=== PATIENT | male | born 1940 | race Caucasian/White ===

== ENCOUNTER → 2017-10-05 | Outpatient (CLI) | payer MEDICARE, BC ==
--- NOTE | 2017-10-06 11:56 | RADRPT ---
EXAM DATE/TIME: 10/05/2017 00:00 [facility] COMPARISON : No previous studies available for comparison. INDICATIONS : Evaluate patient for possible RT renal biopsy and ablation treatment. HISTORY OF PRESENT ILLNESS: 77 year-old with right renal mass identified on outside ultrasound of the abdomen IMAGING STUDIES: Outside ultrasound was reviewed. ASSESSMENT: Lesion in the right kidney cannot be characterized as a simple cyst. However, additional imaging is n ecessary to exclude benign entity such as angiomyolipoma. PLAN: Suggest obtaining a CT scan of the abdomen with and without IV contrast to further evaluate right jorge al mass lesion. No oral contrast necessary. TIME SPENT: 10 minutes Devin Pardo MD on October 06, 2017 at 11:52 Board Certified Radiologist. This report was verified electronically.
== END ==
LOC: HRAD 18:53
PROVIDERS: ATTEND Urology
DX: N28.89 Other specified disorders of kidney and ureter (principal)

== ENCOUNTER → 2017-10-18 | Outpatient (CLI) | payer MEDICARE, BC | LOC: HRAD 16:12 | PROVIDERS: ATTEND Urology | DX: N28.89 Other specified disorders of kidney and ureter (principal) ==

== ENCOUNTER 2017-10-28 06:59 | Day surgery (SDC) | payer MEDICARE, BC ==
[~2017-10-28] VITALS: Ht 170.2 cm; Wt 85.9 kg
[2017-10-28] VITALS (7 sets, daily range): BP systolic 107–136; BP diastolic 56–93; PULSE 18–70; RESP 18–20; TEMP 97.8; O2SAT 87–99
[2017-10-28] MEDS ORDERED: METOPROLOL TARTRATE 25 MG TAB PO PRN (07:30)
[2017-10-28] MEDS ORDERED: ceFAZolin 2 GM PREMIX 50 ML IV SCH (07:30)
[2017-10-28] MEDS ORDERED: CHLORHEXIDINE GLUCONATE 2 % 1 PACK (2 CLOTHS) TOPICAL PRN (07:30)
[2017-10-28] MEDS ORDERED: LACTATED RINGER'S 1000 ML IV PRN (07:30)
[2017-10-28] MEDS ORDERED: POVIDONE IODINE 5% (ANTISEPSIS KIT) 4 APPLICATIONS EACH NARE PRN (07:30)
[2017-10-28] MEDS ORDERED: SODIUM CHLORID 0.9% 500 ML IV PRN (07:30)
[2017-10-28] MEDS ORDERED: SODIUM CHLOR 0.9% 1000 ML INJ 1,000 ML IV SCH (07:30)
[2017-10-28] MEDS ORDERED: LEVO50TA4 PO (07:35)
[2017-10-28] MEDS ORDERED: ISOS30TA3 PO (07:35)
[2017-10-28] MEDS ORDERED: AMLO2.5T PO (07:35)
[2017-10-28] MEDS ORDERED: PRAV80TA2 PO (07:35)
[2017-10-28] MEDS ORDERED: CETI10 (07:35)
[2017-10-28] MEDS ORDERED: ENAL20TA PO (07:35)
[2017-10-28] MEDS ORDERED: ASPI-516 CHEW (07:35)
[2017-10-28] MEDS ORDERED: ESOM1CAP16 PO (07:35)
[2017-10-28] MEDS ORDERED: FENO54TA PO (07:35)
[2017-10-28] MEDS ORDERED: ULOR80TA2 (07:35)
[2017-10-28 08:11] LABS: INTERNATIONAL NORMALIZED RATIO 1.1 RATIO; PROTHROMBIN TIME - PATIENT 11.4 SEC (9.8-11.6)
--- NOTE | 2017-10-28 11:47 | PD.RAD ---
Post CT Procedure Prog Note Procedure Date: October 28, 2017 Supervising Radiologist: Zach Montes Anesthesia: General, Local Plan of Activity Patient to Unit: PACU Patient Condition: Good See PACS Report for procedural detail/treatment Zach Montes MD October 28, 2017 11:47
[2017-10-28 12:09] LABS: HEMATOCRIT 35.4 % (39.0-51.0); HEMOGLOBIN 12.1 GM/DL (13.0-17.0)
[2017-10-28] MEDS ORDERED: MIDAZOLAM HCL 2 MG/2 ML VIAL ONE (12:16)
--- NOTE | 2017-10-28 12:36 | RADRPT ---
EXAM DATE: 10/28/2017 12:17 PM EDT AGE/SEX: 77 years / Male INDICATIONS: 77-year-old male with chronic renal insufficiency and newly diagnosed 3.9 cm mass in th e inferior pole of the right kidney. Given patient's history of renal insufficiency, patient presents for thermal ablation. I had an extensive discussion with the patient regarding possible difficulty o btaining appropriate margins due to the size of the mass and possible need for additional interventio ns. CLINICAL DATA: This is the patient's initial encounter. Patient reports that signs and symptoms have been present for 1 day and indicates a pain score of 0/10. MEDICAL/SURGICAL HISTORY: None. None. Anesthesia and pain control was provided by the Anesthesia department. DEVICE(S): Cryoablation probe 2.4 cryo needle Prophylactic antibiotics were administered with appropriate pre-procedure timing. . . COMPARISON: No prior [place] exams available for comparison. PROCEDURE : 1. CT guided cryoablation. 2. 3. Under sterile conditions and using aseptic technique with CT guidance the mass was localized and sati sfactory approach was taken to access the lesion. Using automated exposure control and adjustment of the mA and/or kV according to patient size, radiation dose was kept as low as reasonably achievable to obtain optimal diagnostic quality images. DICOM format image data is available electronically for review and comparison. Webtab Cryoprobes were employed using percutaneous technique employing the prescribed probes. An 18-gauge Hudd[place]eston blunt tip needle was also advanced adjacent to the anterior margin of the mass an d approximately 60 cc of normal saline was injected to allow for sufficient hilar dissection from adj acent bowel loop. A freeze-thaw, freeze-thaw technique was employed and serial imaging demonstrated a n ice ball encompassing the entire lesion. Post procedure images demonstrate expected postoperative changes without evidence of hematoma. CONCLUSION: 1. Uncomplicated cryoablation as above. Electronically signed by: Zach Montes MD 10/28/2017 12:35 PM EDT
[2017-10-28] MEDS ORDERED: DO NOT ADM ANY ANTICOAGULANT DRUGS PRN (13:15)
[2017-10-28] MEDS ORDERED: HYDROmorphone HCL PF 2 MG/ML VIAL ONE (13:16)
[2017-10-28] MEDS ORDERED: HYDROmorphone HCL PF 2 MG/ML VIAL IV ONE (14:30)
--- NOTE | 2017-10-28 14:40 | EKG ---
Date Performed: 10/28/2017 Time Performed: 07:30:17 PTAGE: 77 years EKG: Sinus rhythm WITH FREQUENT SUPRAVENTRICULAR PREMATURE COMPLEXES BORDERLINE LEFT AXIS DEVIATION LEFT VENTRICULAR H YPERTROPHY AND ST-T CHANGE ABNORMAL ECG NO PREVIOUS TRACING DOCTOR: Figueroa Christensen Interpretating Date/Time 10/28/2017 14:39:54
--- NOTE | 2017-10-28 15:27 | RADRPT ---
EXAM DATE: 10/28/2017 12:17 PM EDT AGE/SEX: 77 years / Male INDICATIONS: Right renal mass. CLINICAL DATA: This is the patient's initial encounter. Patient reports that signs and symptoms have been present for 1 day and indicates a pain score of 0/10. MEDICAL/SURGICAL HISTORY: None. None. COMPARISON: No prior [facility] exams available for comparison. BIOPSY SITE: Right renal Anesthesia and pain control was provided by the Anesthesia department. DEVICE(S): 18 gauge BARD biopsy needle One core specimen(s) sent to the laboratory for pathologic evaluation. Prophylactic antibiotics were administered with appropriate pre-procedure timing. . . PROCEDURE: CT guided Right renal biopsy Prior to the procedure informed consent was obtained. Any appropriate prior imaging studies were rev iewed. Using automated exposure control and adjustment of the mA and/or kV according to patient size, radiat ion dose was kept as low as reasonably achievable to obtain optimal diagnostic quality images. DICOM format image data is available electronically for review and comparison. The site was prepped in a sterile fashion. Full sterile technique was used, including cap, mask, becky rile gloves and gown and a large sterile sheet. Hand hygiene and 2% chlorhexidine and/or betadine/al cohol prep was utilized per protocol for cutaneous antisepsis. The skin and subcutaneous tissues wer e infiltrated with local anesthetic solution. With CT guidance the previously identified target was localized. Biopsy was performed using the presc ribed needle as above. Adequate hemostasis was obtained with compression at the puncture site. Follow-up CT scan reveals no hemorrhage. The patient tolerated the procedure well and there were no complications. The patient was returned to the Radiology Outpatient Unit in stable condition. FINDINGS: CONCLUSION: 1. Uncomplicated CT guided biopsy. Electronically signed by: Zach Montes MD 10/28/2017 3:26 PM EDT
[2017-10-28 16:37] LABS: HEMATOCRIT 39.2 % (39.0-51.0); HEMOGLOBIN 13.7 GM/DL (13.0-17.0)
== END 2017-10-28 17:25 | disposition home or self-care (01) ==
LOC: HROP 06:59 → HRIP 07:10 → HROP 17:25
PROVIDERS: ATTEND Urology
DX: N28.89 Other specified disorders of kidney and ureter (principal); N18.9 Chronic kidney disease, unspecified; Z01.810 Encounter for preprocedural cardiovascular examination
CPT/HCPCS: 50200; 50593; 77012; 77013; 85014; 85018; 85610; 85730; 88305; 93005; J1170; J3010; J2250

== ENCOUNTER 2017-11-04 13:16 | Day surgery (SDC) | payer MEDICARE, BC ==
[~2017-11-04 13:16] MED LIST: AMLO2.5T PO; ASPI-516 CHEW; CETI10; ENAL20TA PO; ESOM1CAP16 PO; FENO54TA PO; ISOS30TA3 PO; LEVO50TA4 PO; PRAV80TA2 PO; ULOR80TA2
[2017-11-04 13:45] VITALS: BP 123/80; PULSE 75; RESP 18; TEMP 96; O2SAT 96
--- NOTE | 2017-11-04 13:45 | PD.RAD ---
Post US Procedure Prog Note Pre Procedure Diagnosis: (1) Right thyroid nodule Post Procedure Diagnosis: (1) Right thyroid nodule Procedure Date: Nov 04, 2017 Supervising Radiologist: Henri Vilchis Proceduralist/Assist: Violeta Kee RDMS Anesthesia: Local Plan of Activity Patient to Unit: ROPU Patient Condition: Good See PACS Report for procedural detail/treatment Biopsy Imaging Guidance: Ultrasound Side: Right Biopsy Procedure: Thyroid Specimen: Fine Needle Aspirate Additional Detail: 4 FNAs. Plan to ROPU then discharge. Henri Vilchis MD Nov 04, 2017 13:45
== END 2017-11-04 14:00 | disposition home or self-care (01) ==
LOC: HROP 13:16 → HRIP 13:21 → HROP 14:00
PROVIDERS: ATTEND Radiology Body Imaging
DX: N28.89 Other specified disorders of kidney and ureter (principal)